=== PATIENT | female | born 1970 | race Hispanic/Latino ===

== ENCOUNTER 2017-10-11 09:27 | Outpatient (CLI) | payer OTHER ==
[2017-10-11 10:16] LABS: #Basophils 0.1 thou/uL (0.0-0.2); #Eosinphils 0.3 thou/uL (0.0-0.7); #Lymphocytes 2.4 thou/uL (1.20-3.40); #Monocytes 0.4 thou/uL (0.11-0.59); #Neutrophils 3.9 thou/uL (1.40-6.50); %Basophils 0.8 % (0.0-1.0); %Eosinophils 4.6 % (0.0-10.0); %Lymphocytes 33.7 % (21.0-51.0); %Monocytes 6.1 % (0.0-10.0); %Neutrophils 54.7 % (42.0-75.0); Hemoglobin 14.9 g/dL (12.0-16.0); Mean Corpuscular HGB CONC 33.1 g/dL (32.0-36.0); Mean Corpuscular Hemoglobin 29.5 pg (27.0-31.0); Mean Corpuscular Volume 89.2 fl (81.0-99.0); Platelet Count 337 thou/uL (130-400); RBC Distribution Width 12.3 % (11.5-14.5); Red Blood Cell (RBC) Count 5.05 mill/uL (4.20-5.40); White Blood Cell (WBC) Count 7.2 thou/uL (4.8-10.8)
[2017-10-11 10:46] LABS: ALT (SGPT) 25 U/L (8-55); AST (SGOT) 24 U/L (5-34); Albumin 4.5 g/dL (3.5-5.0); Alkaline Phosphatase 107 U/L (40-150); Anion Gap 12 mmol/L (10-20); BUN (Urea Nitrogen) 12 mg/dL (7.0-18.7); Bilirubin, Total 0.5 mg/dL (0.2-1.2); Calc. Creatinine Clearance 0 mL/min (70-130); Calcium 10.1 mg/dL (7.8-10.44); Carbon Dioxide 25 mmol/L (22-29); Chloride 105 mmol/L (98-107); Estimated GFR-MDRD 89; Globulin 3.4 g/dL (2.4-3.5); Glucose 91 mg/dL (70-105); Potassium 4.5 mmol/L (3.5-5.1); Protein, Total 7.9 g/dL (6.0-8.3); Sodium 137 mmol/L (136-145)
== END 2017-10-11 09:28 | disposition home or self-care (01) ==
LOC: LABBT 09:27
PROVIDERS: ATTEND Surgery
DX: Z01.812 Encounter for preprocedural laboratory examination (principal); D17.22 Benign lipomatous neoplasm of skin and subcutaneous tissue of left arm
CPT/HCPCS: 80053; 85025

== ENCOUNTER 2017-10-14 07:31 | Day surgery (SDC) | payer OTHER ==
[2017-10-11 09:47] VITALS: BMI 27.9
[2017-10-14] MEDS ORDERED: CEFAZOLIN/Water 2 GM/20 ML SYRINGE ONE (08:45)
[2017-10-14] MEDS ORDERED: Fentanyl 100 MCG/2 ML VIAL ONE (09:49)
[2017-10-14] MEDS ORDERED: Midazolam HCl 2 mg/2 ml Vial ONE ×2 (09:49→09:58)
[2017-10-14] MEDS ORDERED: Bupivacaine 0.25% HCL 30 ML VIAL ONE (09:55)
[2017-10-14] MEDS ORDERED: Lidocaine 2% w/Epinephrine 1:200K 20 ML VIAL ONE (09:55)
--- NOTE | 2017-10-14 11:17 | OP ---
PREOPERATIVE DIAGNOSIS: Lipoma of left upper arm. SURGEON: Tiago Smith M.D. PROCEDURE PERFORMED: Excisional biopsy. INDICATIONS: This is a 47-year-old female who had an enlarging soft tissue mass of the left upper ar m anterior. FINDINGS: A 6 x 8 cm multilobular lipoma. DESCRIPTION OF PROCEDURE: After informed consent was obtained, the patient was taken to the operatin g room and given general endotracheal anesthesia and placed in the supine position. Her left arm was prepped and draped in the usual fashion. Local anesthesia infiltrated subcutaneously and deep with 0.5% Marcaine. A longitudinal incision was performed. Subcu divided sharply. The capsule was incis ed and digital dissection was performed to dissect out all the lobules, then posteriorly it was excis ed with electrocautery and sent to pathology for further analysis. Hemostasis was achieved with elec trocautery. The wound was irrigated and irrigation fluid removed. The subcutaneous reapproximated w ith interrupted 3-0 Vicryl. Skin closed with a running subcuticular 4-0 Rapide. Dermabond applied a nd then a sterile bandage applied. The patient tolerated the procedure well and transferred to [facility] in good condition. Sponge and needle count verified correct x2.
[2017-10-14] MEDS ORDERED: PROPOFOL 200 MG/20 ML VIAL ONE (16:22)
[2017-10-14] MEDS ORDERED: Ondansetron PF 4 MG/2 ML Vial ONE (16:22)
[2017-10-14] MEDS ORDERED: Lidocaine 1% PF 5 ML VIAL ONE (16:22)
[2017-10-14] MEDS ORDERED: ePHEDrine/0.9% NaCl/PF SYRINGE 50 mg/10 ml ONE (16:22)
[2017-10-14] MEDS ORDERED: Dexamethasone 20 MG/5 ML VIAL ONE (16:22)
== END 2017-10-14 12:00 | disposition home or self-care (01) ==
LOC: SDC 07:31
PROVIDERS: ATTEND Surgery
PROC: 0JBF0ZX Excision of Left Upper Arm Subcutaneous Tissue and Fascia, Open Approach, Diagnostic (ICD-10-PCS; principal; 2017-10-14)
DX: D17.22 Benign lipomatous neoplasm of skin and subcutaneous tissue of left arm (principal); F32.9 Major depressive disorder, single episode, unspecified; Z85.41 Personal history of malignant neoplasm of cervix uteri; Z79.899 Other long term (current) drug therapy; Z82.49 Family history of ischemic heart disease and other diseases of the circulatory system; Z90.49 Acquired absence of other specified parts of digestive tract; Z90.710 Acquired absence of both cervix and uterus
CPT/HCPCS: 88304; J1100; J2001; J2250; J2405; J2704; J3010; S0020

== ENCOUNTER 2018-11-16 08:32 | Outpatient (CLI) | payer OTHER ==
--- NOTE | 2018-11-20 13:25 | MMO ---
Bilateral MAMMO Bilat Screen [facility]DI. CLINICAL HISTORY: Patient is 48 years old and is seen for screening. The patient has no family history of breast cancer. The patient has a history of cervical cancer. VIEWS: The views performed were: bilateral craniocaudal and bilateral mediolateral oblique. FILMS COMPARED: The present examination has been compared to prior imaging studies performed at [facility] on 04/01/2011, 04/20/2012, 06/26/2013, 06/27/2014, 06/27/2015, 08/17/2016 and 08/31/2017. This study has been interpreted with the assistance of computer-aided detection. MAMMOGRAM FINDINGS: The breasts are heterogeneously dense, which could obscure a lesion on mammography. There are stable benign appearing calcifications seen in both breasts. There are no suspicious masses, suspicious calcifications, or new areas of architectural distortion. IMPRESSION: THERE IS NO MAMMOGRAPHIC EVIDENCE OF MALIGNANCY. A ROUTINE FOLLOW-UP MAMMOGRAM IN 1 YEAR IS RECOMMENDED. ACR BI-RADS Category 2 - Benign finding MAMMOGRAPHY NOTE: 1. A negative mammogram report should not delay a biopsy if a dominant of clinically suspicious mass is present. 2. Approximately 10% to 15% of breast cancers are not detected by mammography. 3. Adenosis and dense breasts may obscure an underlying neoplasm.
== END 2018-11-16 08:33 | disposition home or self-care (01) ==
LOC: SCSMAMMO 08:32
PROVIDERS: ATTEND Family Medicine
DX: Z12.31 Encounter for screening mammogram for malignant neoplasm of breast (principal); Z85.41 Personal history of malignant neoplasm of cervix uteri
CPT/HCPCS: 77067

== ENCOUNTER 2020-12-30 09:13 | Outpatient (CLI) | payer OTHER | END 2020-12-30 09:14 | disposition home or self-care (01) | LOC: ULT 09:13 | PROVIDERS: ATTEND Family Medicine | DX: R94.5 Abnormal results of liver function studies (principal) | CPT/HCPCS: 76705 ==

== ENCOUNTER 2024-09-04 18:26 | Emergency (ER) | payer OTHER ==
[2024-09-04] MEDS ORDERED: diphenhydrAMINE 50 MG/ML VIAL ONE (19:28)
[2024-09-04] MEDS ORDERED: Metoclopramide HCl 10 MG (2 mL) VIAL ONE (19:28)
[2024-09-04] MEDS ORDERED: Acetaminophen 500 MG TAB ONE (19:28)
== END 2024-09-04 22:12 | disposition home or self-care (01) ==
LOC: ERS 18:26
DX: J32.9 Chronic sinusitis, unspecified (principal); I10 Essential (primary) hypertension
CPT/HCPCS: 87428; 99284; J1200; J2765

== ENCOUNTER 2024-10-22 14:04 | Outpatient (CLI) | payer OTHER | END 2024-10-22 14:05 | disposition home or self-care (01) | LOC: BICMAMMO 14:04 | PROVIDERS: ATTEND Family Medicine | DX: Z12.31 Encounter for screening mammogram for malignant neoplasm of breast (principal); Z85.41 Personal history of malignant neoplasm of cervix uteri | CPT/HCPCS: 77063; 77067 ==